=== PATIENT | male | born 1980 | race Caucasian/White ===

== ENCOUNTER 2022-02-05 09:31 | Emergency (ER) | payer BC ==
[~2022-02-05] VITALS: Ht 177.8 cm; Wt 110.0 kg
[2022-02-05 09:45] VITALS: BP 166/116
[2022-02-05 10:10] LABS: BASOPHILS # (AUTO) 0.1 X10'3 (0-0.2); EOSINOPHILS # (AUTO) 0.1 X10'3 (0-0.9); EOSINOPHILS % (AUTO) 1.8 % (0-6); HEMATOCRIT 44.3 % (42.0-52.0); HEMOGLOBIN 15.6 g/dl (14.0-17.9); LYMPHOCYTES # (AUTO) 1.6 X10'3 (1.1-4.8); LYMPHOCYTES % (AUTO) 25.4 % (21-51); MEAN CORPUSCULAR HEMOGLOBIN 32.8 PG (27.0-31.0); MEAN CORPUSCULAR HGB CONC 35.2 g/dL (33.0-36.5); MEAN CORPUSCULAR VOLUME 93.3 FL (78-98); MEAN PLATELET VOLUME 6.2 FL (7.4-10.4); MONOCYTES # (AUTO) 0.9 X10'3 (0-0.9); MONOCYTES % (AUTO) 14.1 % (2-12); NEUTROPHILS # (AUTO) 3.6 X10'3 (1.8-7.7); NEUTROPHILS % (AUTO) 57.7 % (42-75); PLATELET COUNT 148 X10'3 (140-440); RED BLOOD COUNT 4.75 X10'6 (4.70-6.10); RED CELL DISTRIBUTION WIDTH 13.5 % (11.5-14.5); WHITE BLOOD COUNT 6.3 X10'3 (4.5-11.0)
[2022-02-05 10:12] LABS: CLARITY,URINE CLEAR (Clear); GLUCOSE, URINE NEGATIVE (Neg); KETONES,URINE NEGATIVE (Neg); LEUKOCYTE ESTERASE ,URINE NEGATIVE (Neg); NITRITES, URINE NEGATIVE (Neg); OCCULT BLOOD,URINE MODERATE (Neg); PH,URINE 5.5 (4.8-8.0); PROTEIN,URINE NEGATIVE (Neg); UROBILINOGEN,URINE 0.2 E.U/dL (0.2-1.0)
[2022-02-05 10:14] LABS: COLOR,URINE STRAW (Yellow); UA COLLECTION TYPE CLN CATCH MIDSTREAM
[2022-02-05 10:17] LABS: SQUAMOUS EPITHELIAL CELL,UR FEW /LPF (FEW)
[2022-02-05 10:18] LABS: BACTERIA,URINE FEW /HPF (Neg); RBC,URINE 0-2 /HPF (0-2); WBC,URINE 0-4 /HPF (0-4)
[2022-02-05 10:20] LABS: ALANINE AMINOTRANSFERASE 72 U/L (12-78); ALBUMIN/GLOBULIN RATIO 1.1 (1.1-1.5); ALKALINE PHOSPHATASE 55 IU/L (46-116); ANION GAP 7 (8-16); ASPARTATE AMINO TRANSFERASE 31 U/L (10-37); BILIRUBIN,TOTAL 0.8 MG/DL (0.1-1.0); BLOOD UREA NITROGEN 16 MG/DL (7-18); BUN/CREATININE RATIO 9.1 (5.4-32.0); CALCIUM 9.3 MG/DL (8.5-10.1); CHLORIDE 102 MMOL/L (99-107); CREATININE 1.75 MG/DL (0.60-1.10); GLUCOSE 110 MG/DL (70-104); LIPASE 108 U/L (73-393); POTASSIUM 4.6 MMOL/L (3.5-5.1); SODIUM 138 MMOL/L (135-145); TOTAL CARBON DIOXIDE 29.3 MMOL/L (24-32); TOTAL PROTEIN 7.7 G/DL (6.4-8.2); eGFR 44 ML/MIN
--- NOTE | 2022-02-05 11:35 | NUR ---
Patient has an appointment for a CT today outpatient and is leaving to go to the appointment scheduled at 1200. Dr. Murguia aware.
== END 2022-02-05 11:37 | disposition left against medical advice (07) ==
LOC: ER 09:31
DX: M54.9 Dorsalgia, unspecified (principal); Z53.21 Procedure and treatment not carried out due to patient leaving prior to being seen by health care provider
CPT/HCPCS: 36415; 80053; 81001; 83690; 85025

== ENCOUNTER 2024-02-05 09:25 | Emergency (ER) | payer BC ==
[~2024-02-05] VITALS: Ht 177.8 cm; Wt 109.1 kg
[2024-02-05 09:26] VITALS: TEMP 98.4
[2024-02-05] MEDS: morphine 4 MG/ML inj SYRINge IV ONE (09:47)
[2024-02-05] MEDS: ketorolac trometh 15mg/ml vial 15 MG/ML ML IV ONE (10:05)
[2024-02-05 10:17] LABS: ALBUMIN 3.6 G/DL (3.4-5.0); ALKALINE PHOSPHATASE 67 IU/L (46-116); BLOOD UREA NITROGEN 12 MG/DL (7-18); CHLORIDE 97 MMOL/L (99-107); TOTAL CARBON DIOXIDE 23.7 MMOL/L (24-32)
[2024-02-05 10:34] LABS: BILIRUBIN,URINE NEGATIVE (Neg); CLARITY,URINE SLIGHTLY CLOUDY (Clear); COLOR,URINE YELLOW (Yellow); GLUCOSE, URINE NEGATIVE (Neg); KETONES,URINE NEGATIVE (Neg); LEUKOCYTE ESTERASE ,URINE NEGATIVE (Neg); OCCULT BLOOD,URINE LARGE (Neg); PH,URINE 6.5 (4.8-8.0); PROTEIN,URINE 100 mg/dl (Neg)
[2024-02-05 10:43] LABS: BASOPHILS # (AUTO) 0.1 X10'3 (0-0.2); BASOPHILS % (AUTO) 1.1 % (0-1); EOSINOPHILS % (AUTO) 0.9 % (0-6); HEMOGLOBIN 17.9 g/dl (14.0-17.9); LYMPHOCYTES # (AUTO) 1.6 X10'3 (1.1-4.8); LYMPHOCYTES % (AUTO) 31.9 % (21-51); MEAN CORPUSCULAR HEMOGLOBIN 33.5 PG (27.0-31.0); MEAN CORPUSCULAR HGB CONC 35.9 g/dL (33.0-36.5); MEAN CORPUSCULAR VOLUME 93.3 FL (78-98); MEAN PLATELET VOLUME 7.9 FL (7.4-10.4); MONOCYTES # (AUTO) 0.5 X10'3 (0-0.9); MONOCYTES % (AUTO) 9.8 % (2-12); NEUTROPHILS # (AUTO) 2.9 X10'3 (1.8-7.7); NEUTROPHILS % (AUTO) 56.3 % (42-75); PLATELET COUNT 144 X10'3 (140-440); RED BLOOD COUNT 5.36 X10'6 (4.70-6.10); RED CELL DISTRIBUTION WIDTH 13.7 % (11.5-14.5); WHITE BLOOD COUNT 5.2 X10'3 (4.5-11.0)
[2024-02-05] MEDS: HYDROmorphone 1 mg/ml syringe IV ONE (10:45)
[2024-02-05 10:46] LABS: UA COLLECTION TYPE CLN CATCH MIDSTREAM
[2024-02-05 10:47] LABS: NITRITES, URINE NEGATIVE (Neg)
[2024-02-05 10:49] LABS: RBC,URINE TNTC /HPF (0-2)
[2024-02-05 10:51] LABS: BACTERIA,URINE 1+ /HPF (Neg)
[2024-02-05 10:53] LABS: SQUAMOUS EPITHELIAL CELL,UR FEW /LPF (FEW)
[2024-02-05 10:54] LABS: TRIPLE PHOSPHATE CRYST 1+ /HPF (NEGATIVE)
[2024-02-05 10:55] LABS: MUCUS STRANDS FEW /LPF (Neg)
[2024-02-05 11:12] LABS: BILIRUBIN,TOTAL 0.8 MG/DL (0.1-1.0); BUN/CREATININE RATIO 8.9 (10.0-20.0); CREATININE 1.35 MG/DL (0.60-1.10); GLUCOSE 144 MG/DL (70-104); TOTAL PROTEIN 7.3 G/DL (6.4-8.2); eCRCL 74 ML/MIN; eGFR 58 ML/MIN
[2024-02-05 11:29] LABS: ANION GAP 13 (8-16); SODIUM 134 MMOL/L (135-145)
[2024-02-05 11:34] LABS: ALANINE AMINOTRANSFERASE 18 U/L (12-78); ASPARTATE AMINO TRANSFERASE 10 U/L (10-37); POTASSIUM 4.2 MMOL/L (3.5-5.1)
[2024-02-05] MEDS ORDERED: FLO0.4C PO (12:10)
[2024-02-05] MEDS ORDERED: HYDR-3973 PO (12:10)
[2024-02-05] MEDS ORDERED: CIPR250T4 PO (12:10)
[2024-02-05] MEDS ORDERED: HYDR-3965 PO (12:28)
[2024-02-05] MEDS: ondansetron/PF 4mg/2ml inj IV ONE (12:30)
[2024-02-05 12:38] VITALS: BP 156/98; PULSE 98; RESP 17; O2SAT 98
== END 2024-02-05 12:42 | disposition home or self-care (01) ==
LOC: ER 09:26
DX: N13.2 Hydronephrosis with renal and ureteral calculous obstruction (principal); I10 Essential (primary) hypertension; Z72.89 Other problems related to lifestyle; Z79.899 Other long term (current) drug therapy
CPT/HCPCS: 36415; 80053; 81001; 85025; 87088; 96374; 96375; 99284; J1171; J1885; J2270; J2405; J7030

== ENCOUNTER 2024-02-06 17:06 | Emergency (ER) | payer BC ==
[~2024-02-06] VITALS: Ht 177.8 cm; Wt 92.3 kg
[~2024-02-06 17:06] MED LIST: CIPR250T4 PO; FLO0.4C PO; HYDR-3965 PO; HYDR-3973 PO
[2024-02-06 17:17] VITALS: TEMP 97
[2024-02-06] MEDS: ketorolac trometh 15mg/ml vial 15 MG/ML ML IV ONE (18:02)
[2024-02-06] MEDS: HYDROmorphone 1 mg/ml syringe IV ONE (18:03)
[2024-02-06] MEDS: normal saline 1000ML IV soln IVB ONE (18:06)
[2024-02-06 20:15] VITALS: BP 167/106; PULSE 94; RESP 16; O2SAT 100
== END 2024-02-06 20:19 | disposition home or self-care (01) ==
LOC: ER 17:07
DX: N13.2 Hydronephrosis with renal and ureteral calculous obstruction (principal); I10 Essential (primary) hypertension; Z72.89 Other problems related to lifestyle; Z79.899 Other long term (current) drug therapy
CPT/HCPCS: 74176; 96361; 96374; 96375; 99285; J1171; J1885; J7030